=== PATIENT | male | born 1970 | race Caucasian/White ===

== ENCOUNTER 2022-11-19 22:34 | Emergency (ER) | payer OTHER ==
[~2022-11-19] VITALS: Ht 162.6 cm; Wt 93.2 kg
[2022-11-19 22:40] VITALS: O2SAT 97
[2022-11-19] MEDS ORDERED: ACETAMINOPHEN 325MG TABLET PO STA (23:02)
[2022-11-19 23:30] LABS: BASOPHILS % 0.3 % (0.0-2.0); EOSINOPHILS % 2.2 % (0.0-5.0); HEMATOCRIT. 44.7 % (42.0-52.0); HEMOGLOBIN. 15.3 g/dL (14.0-18.0); LYMPHOCYTES % 24.4 % (20.0-50.0); MEAN CORPUSCULAR HGB CONC 34.3 g/dL (31.0-37.0); MEAN CORPUSCULAR VOLUME 93.3 fL (80.0-94.0); MEAN PLATELET VOLUME 8.9 fl (7.4-10.4); MONOCYTES % 5.4 % (2.0-8.0); NEUTROPHILS % 67.7 % (40.0-76.0); PLATELET 219 x1000/uL (130-400); RED BLOOD CELL COUNT 4.79 mill/uL (4.7-6.1); RED CELL DISTRIBUTION WIDTH 13.6 % (11.6-14.6); WHITE BLOOD COUNT 10.1 x1000/uL (4.5-11.0)
[2022-11-19 23:47] LABS: PROTHROMBIN TIME 10.4 sec (9.6-11.0)
[2022-11-19 23:48] LABS: CHLORIDE 107 mEq/L (98-107); INDEX HEMOLYSI 1 (1-3); INDEX ICTERIC 1 (1-4); INDEX LIPEMIC 1 (1-3); POTASSIUM 3.6 mEq/L (3.5-5.1); SODIUM 139 mEq/L (136-145)
[2022-11-19 23:57] LABS: ALANINE AMINOTRANSFERASE 85 IU/L (13-61); ALBUMIN 3.6 g/dL (3.4-5.0); ASPARTATE AMINOTRANSFERASE 44 IU/L (15-37); BILIRUBIN TOTAL 0.2 mg/dL (0.1-1.0); CALCIUM 8.2 mg/dL (8.5-10.1); CARBON DIOXIDE 22 mEq/L (21-32); CREATININE 0.8 mg/dL (0.6-1.3); ETHANOL BLOOD 222 mg/dL (-10); GLUCOSE 153 mg/dL (70-105); PROTEIN TOTAL 7.7 g/dL (6.0-8.3); TROPONIN I HIGH SENSITIVITY 4 ng/L (<78); UREA NITROGEN BLOOD 13 mg/dL (7-21)
[2022-11-20 02:00] VITALS: BP 121/69; PULSE 95; RESP 24; TEMP 98
[2022-11-20] MEDS ORDERED: IOHEXOL-300 100 ML BOTTLE ONE (06:02)
[2022-11-20] MEDS ORDERED: HYDR-4009 MT (06:32)
[2022-11-20] MEDS ORDERED: LIDO700A15 TP (06:32)
[2022-11-20] MEDS ORDERED: IBUP-2029 MT (06:32)
== END 2022-11-20 03:40 | disposition home or self-care (01) ==
LOC: ER 22:34
DX: R07.89 Other chest pain (principal); R06.02 Shortness of breath; R11.0 Nausea; E11.9 Type 2 diabetes mellitus without complications; I10 Essential (primary) hypertension
CPT/HCPCS: 80053; 80320; 83690; 85025; 85610; 86850; 86900; 86901; 84484; 36415; 71045; 70450; 71260; 72125; 74177; 93005; 99285; Q9967; Z7610; G0480